=== PATIENT | female | born 1985 | race Caucasian/White ===

== ENCOUNTER 2018-08-20 10:12 | Observation (INO) | payer OTHER ==
--- NOTE | 2018-08-20 06:20 | PDGENHP ---
History and Physical History and Physical: Assessment and Plan: 1. Endometriosis of pelvic peritoneum Tere has incompletely treated endometriosis with persistent symptoms. She also has localized epigastric pain which may or may not be related to endometriosis. However her workup thus far with gastroenterology has been negative. Despite menstrual suppression she has continued symptoms. We reviewed all further conservative and surgical options. She is leaning toward surgical intervention. She will consider this further and contact us when she is ready to schedule. We discussed the issues of egg freezing. I may favor having her do this before surgery given the medications required for ovarian stimulation which has the potential risk of worsening her endometriosis. 2. Epigastric pain 3. Secondary dysmenorrhea Subjective: Patient ID: Tere De Guzman is a 32 y.o. female who presents to [facility] for endometriosis. DION Carranza is a 32-year-old 0 woman who lives in [place]. A year and a half ago she developed worsening constipation bloating and other GI issues. She changed her diet without any benefit. By September she was having intense abdominal pain. She was found to have a mass on exam. A CT scan showed a 16 cm pelvic mass. Her CA 125 and CA 199 were both significantly elevated. She was referred to gynecologic oncology for possible ovarian cancer. In October she underwent an exploratory laparotomy through a midline incision and was found to have a large right ovarian endometrioma with adhesions to the uterus, pelvic sidewall, and sigmoid colon. The omentum apparently was significantly studed with endometriosis. She underwent a infracolic omentectomy. She apparently also had a lesion on the diaphragm. The pelvic lesions were fulgurated. The first month after surgery she seemed to feel better. However her symptoms then returned. She has undergone an upper endoscopy and colonoscopy both of which were reportedly normal except for some mild gastritis. She underwent a MRI a few weeks ago which showed some possible small cystic collections in the pelvis which could be "endometriosis or retained blood from surgery". She has been on a Mirena as well as a NuvaRing in continuous fashion since November. She has been amenorrheic since then. She has no chest pain or shortness of breath. She has no dyschezia or dyspareunia. She has been undergoing pelvic floor physical therapy for some increased pelvic muscle tone however she has no symptoms. Recently she has some localized epigastric pain which has been getting worse since surgery. It is a continuous dull ache which occasionally is tender. This has become her most bothersome complaint. 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 She has no current partner. She hopes to have children in the future. She is considering egg freezing. Her primary care provider is Jonathan Corea while her reshipping clerk is Sanna Turner. PastMedicalHistory Past Medical History: Diagnosis Date Allergy to pollen Depression Endometriosis Gastrointestinal disorder PastSurgicalHistory Past Surgical History: Procedure Laterality Date OVARY REMOVAL Right 10/2017 PELVIC LAPAROSCOPY 10/2017 WISDOM TOOTH EXTRACTION CURRENT MEDICATIONS: Current Outpatient Prescriptions Medication Sig calcium carb/magnesium oxid/D3 (CALCIUM MAGNESIUM + D PO) Take by mouth daily. docusate sodium (COLACE) 100 mg capsule Take 100 mg by mouth for constipation. etonogestrel-eth estradiol (NUVARING) 0.12-0.015 mg/24 hr vaginal ring chapincito root (CHAPINCITO EXTRACT PO) ibuprofen (ADVIL,MOTRIN) 400 mg tablet Take 400 mg by mouth. levonorgestrel (MIRENA) 20 mcg/24 hr (5 years) IUD loratadine (CLARITIN,ALAVERT) 10 mg tablet sertraline (ZOLOFT) 50 mg tablet Zoloft 50 mg tablet Take 1 tablet every day by oral route. TURMERIC ROOT EXTRACT PO No current facility-administered medications for this visit. ALLERGIES: Lactose I have reviewed, verified and agree with the past medical, surgical, , family, social and ROS history as documented by the RN today. Objective: Vital Signs: Visit Vitals BP 118/74 Pulse 72 Temp 37.2 C (99 F) (Temporal Artery) Resp 16 Ht 1.695 m (5' 6.75") Wt 68.4 kg (150 lb 12.8 oz) SpO2 97% BMI 23.80 kg/m Physical Exam Gen: This is an alert, well developed woman in no distress. Neuro: She moves all extremities. Psych: She is appropriate, oriented, with normal affect. Neck: No thyroid enlargement, adenopathy, or tenderness. Lungs: Clear to ascultation, no wheezes or rales. Heart: Regular rate and rhythm without obvious murmurs. Abdomen: Soft, non-tender, without guarding, rebound, or masses. Extremities: No edema or cyanosis. Pelvic: Normal external genitalia. Non-gaping introitus, vagina without discharge, adequately estrogenized, no significant prolapse. Cervix without lesions or discharge. Uterus normal sized, some reduced mobility. Adnexa mildly- tender without enlargement. She is tender surrounding the cervix more so in the posterior cul-de-sac. There is a more tender nodule at the insertion of the left uterosacral ligament into the cervix. DATA: I have reviewed the pertinent medical records. PELVIC ULTRASOUND Indication: Endometriosis Findings: Uterus is anterior and measures 7.9 x 3.9 x 5.2 cm. A Mirena IUD is seen at the fundus with the arms in a horizontal position. The right adnexa is surgically absent. The left ovary measures 4.4 x 2.0 cm. There is no evidence of significant adhesive disease. Impression: Absent right adnexa. Otherwise unremarkable pelvic ultrasound. TIME/COMMUNICATION: I personally spent a total of 60 minutes. Of that 40 minutes was counseling/ coordination of patient's care. See my note above for details. Codey De Guzman MD Board Certified Female Pelvic Medicine and Reconstructive Surgery Director of Minimally Invasive Gynecologic Surgery, [facility] Surgeon in Minimally Invasive Gynecologic Surgery [facility] Surgeon in Robotic Surgery
[2018-08-20] MEDS ORDERED: PHENAZOPYRIDINE HCL 200 MG TAB PO ONE (10:25)
[2018-08-20] MEDS ORDERED: GABAPENTIN 300 MG CAP PO ONE (10:25)
[2018-08-20] MEDS ORDERED: ceFAZolin 2 GM/DEXTROSE 100 ML IV ONE (10:25)
[2018-08-20] MEDS ORDERED: ACETAMINOPHEN 500 MG TAB PO ONE (10:25)
[2018-08-20] MEDS ORDERED: LR 1,000 ML IV ONE (10:52)
--- NOTE | 2018-08-20 11:08 | PDANEPAE ---
ANE History of Present Illness 33 y/o female here for robot-assisted excision of endometriosis ANE Past Medical History - Cardiovascular History Hx Hypertension: No Hx Arrhythmias: No Hx Chest Pain: No Hx Coronary Artery / Peripheral Vascular Disease: No Hx CHF / Valvular Disease: No Hx Palpitations: No - Pulmonary History Hx COPD: No Hx Asthma/Reactive Airway Disease: No Hx Recent Upper Respiratory Infection: No Hx Oxygen in Use at Home: No Hx Sleep Apnea: No Sleep Apnea Screening Result - Last Documented: Negative - Neurologic History Hx Cerebrovascular Accident: No Hx Seizures: No Hx Dementia: No - Endocrine History Hx Diabetes: No - Renal History Hx Renal Disorders: No - Liver History Hx Hepatic Disorders: No - Neurological & Psychiatric Hx Hx Neurological and Psychiatric Disorders: Yes Neurological / Psychiatric History Comment: mild depression - Cancer History Hx Cancer: No - Congenital Disorder History Hx Congenital Disorders: No - GI History Hx Gastrointestinal Disorders: Yes Gastrointestinal History Comment: 'a lot of digestive issues that go with endometriosis". had gastritis after last surgery. fluctuates between diarrhea and constipation - Other Health History Other Health History: endometriosis - Chronic Pain History Chronic Pain: Yes (r/t endometriosis pain) - Surgical History Prior Surgeries: laparotomy for ovarian cyst removal, removal of right ovary, partial omentectomy, 10/2017 ANE Review of Systems Review of Systems: - Exercise capacity Exercise capacity: >=4 METS METS (RN): 6 METS ANE Patient History - Allergies Allergies/Adverse Reactions: No Known Allergies Allergy (Unverified 08/12/18 16:05) - Home Medications Home medications: home medication list seen and reviewed Home Medications: Calcium Magnesium Caplet 08/12/18 [Last Taken 08/12/18] Colace PRN 08/12/18 [Last Taken 08/18/18] Ibuprofen PRN 08/12/18 [Last Taken 08/12/18] Sertraline HCl 08/12/18 [Last Taken 08/20/18 07:00] - NPO status NPO Since - Liquids (Date): 08/20/18 NPO Since - Liquids (Time): 09:00 NPO Since - Solids (Date): 08/19/18 NPO Since - Solids (Time): 20:00 - Anes Hx Anes Hx: no prior problems - Smoking Hx Smoking Status: Never smoked - Family Anes Hx Family Hx Anesthesia Complications: none ANE Labs/Vital Signs - Vital Signs Blood Pressure: 113/70 Heart Rate: 63 Respiratory Rate: 15 O2 Sat (%): 97 Height: 170.18 cm Weight: 66.678 kg ANE Physical Exam - Airway Neck exam: FROM Mallampati Score: Class 1 Mouth exam: normal dental/mouth exam - Pulmonary Pulmonary: no rales or rhonchi, clear to auscultation - Cardiovascular Cardiovascular: regular rate and rhythym - ASA Status ASA Status: II
--- NOTE | 2018-08-20 11:38 | PDHPUP ---
History & Physical Update H&P update statement: This history and physical update is based on an assessment of the patient which was completed after admission or registration (within 24 hours), but prior to the surgery/procedure. H&P update: H&P reviewed & patient examined, no change in patient's condition since H&P completed
[2018-08-20] MEDS ORDERED: BUPIVACAINE/EPI 0.5% 30 ML SDV ONE (11:55)
[2018-08-20] MEDS ORDERED: MIDAZOLAM 2 MG/2 ML VIAL IVP ONE (12:00)
[2018-08-20] MEDS ORDERED: SCOPOLAMINE HYDROBROMIDE 1 MG/3 DAYS PATCH TD ONE (12:00)
[2018-08-20] MEDS ORDERED: PROPOFOL/EMULSION 500 MG/50 ML BOTTLE IV ONE (12:04)
[2018-08-20] MEDS ORDERED: fentaNYL 100 MCG/2 ML INJ ONE (12:04)
[2018-08-20] MEDS ORDERED: LIDOCAINE 2% 2 ML INJ ONE ×2 (12:05)
[2018-08-20] MEDS ORDERED: ROCURONIUM 50 MG/5 ML VIAL ONE ×2 (12:05→13:13)
[2018-08-20] MEDS ORDERED: PETROLAT,WHT/MIN OIL/SOD CHL 3.5 GM OPHT.OINT ONE (12:32)
[2018-08-20] MEDS ORDERED: DEXAMETHASONE 4 MG/ML VIAL ONE (12:43)
[2018-08-20] MEDS ORDERED: METOCLOPRAMIDE 10 MG/2 ML VIAL ONE (12:44)
[2018-08-20] MEDS ORDERED: ePHEDrine SULFATE 25 MG/5 ML SYR ONE (12:56)
[2018-08-20] MEDS ORDERED: MEPERIDINE 25 MG/0.5 ML AMP IVP PRN (13:44)
[2018-08-20] MEDS ORDERED: PROMETHAZINE HCL 25 MG/ML INJ IVP PRN ×2 (13:44→14:56)
[2018-08-20] MEDS ORDERED: NALOXONE HCL 0.4 MG/ML INJ IVP PRN (13:44)
[2018-08-20] MEDS ORDERED: ONDANSETRON 4 MG/2 ML VIAL IVP PRN ×2 (13:44→14:56)
[2018-08-20] MEDS ORDERED: oxyCODONE IR 5 MG TAB PO PRN (13:44)
[2018-08-20] MEDS ORDERED: LR 500 ML IV PRN (13:44)
[2018-08-20] MEDS ORDERED: fentaNYL 100 MCG/2 ML INJ IVP PRN (13:44)
[2018-08-20] MEDS ORDERED: ACETAMINOPHEN 500 MG TAB PO PRN (13:44)
[2018-08-20] MEDS ORDERED: ONDANSETRON 4 MG/2 ML VIAL ONE ×3 (14:16→15:51)
[2018-08-20] MEDS ORDERED: KETOROLAC 30 MG/1 ML SDV ONE (14:16)
[2018-08-20] MEDS ORDERED: GLYCOPYRROLATE 0.2 MG/1 ML VIAL ONE ×2 (14:29→14:40)
[2018-08-20] MEDS ORDERED: NEOSTIGMINE METHYLSULFATE 5 MG/5 ML SYR ONE (14:33)
[2018-08-20] MEDS ORDERED: ONDANSETRON DISINTEGRATING 4 MG TAB PO PRN (14:56)
[2018-08-20] MEDS ORDERED: HYDROCODONE/APAP 5/325 TAB PO PRN (14:56)
[2018-08-20] MEDS ORDERED: HYDROmorphONE/DILAUDID 1 MG/ML INJ IVP PRN (14:56)
--- NOTE | 2018-08-20 14:56 | POSTOPPROG ---
Post Op Note Date of Operation: 08/20/18 Surgeon: Codey De Guzman Field Administrator: Adriana Castillo Anesthesiologist: Galilea Anesthesia: GET(General Endotracheal) Pre-op Diagnosis: Endometriosis, pelvic pain Post-op Diagnosis: Same Procedure: Excise endo diaphragm, pelvis, rectum; bilat ureterolysis Findings: Endo Inf/Abcess present in the surg proc area at time of surgery?: No EBL: Minimal Complications: None
[2018-08-20] MEDS ORDERED: LR 1,000 ML IV SCH (15:00)
[2018-08-20] MEDS ORDERED: HYDROmorphONE/DILAUDID 2 MG/ML INJ IVP PRN (15:05)
--- NOTE | 2018-08-20 15:05 | POSTANESTH ---
Post Anesthetic Evaluation Respiratory Status: Normal, Stable Level of Consciousness/Mental Status: Alert and Oriented, Mildly Sleepy, Arousable Pain Control: Adequate, Prn Tx Ordered Nausea/Vomiting Control: Adequate, Prn Tx Ordered
[2018-08-20] MEDS ORDERED: HYDROmorphONE/DILAUDID 2 MG/ML INJ ONE (15:29)
[2018-08-20] MEDS: GABAPENTIN 300 MG CAP PO SCH ×2 (17:41→19:36)
[2018-08-20] MEDS: SIMETHICONE 80 MG TAB CHEW PO SCH (19:34)
[2018-08-20] MEDS: OXYCODONE/APAP 5/325 TAB PO PRN (19:48)
[2018-08-20] MEDS: DOCUSATE SODIUM 100 MG CAP PO SCH (19:55)
[2018-08-20] MEDS: KETOROLAC 30 MG/1 ML SDV IVP SCH (22:26)
[2018-08-21] MEDS: ceFAZolin 2 GM/DEXTROSE 100 ML IV SCH ×2 (00:05→08:05)
[2018-08-21] MEDS: OXYCODONE/APAP 5/325 TAB PO PRN ×3 (00:54→09:18)
[2018-08-21] MEDS: KETOROLAC 30 MG/1 ML SDV IVP SCH ×3 (03:53→09:28)
--- NOTE | 2018-08-21 06:07 | GOP ---
DATE OF OPERATION: 08/20/2018 SURGEON: Codey De Guzman MD COMBINE INSPECTOR: Adriana Castillo CFA. ANESTHESIA: General. PREOPERATIVE DIAGNOSIS: 1. Endometriosis. 2. Dysmenorrhea. 3. Chest pain. 4. Cyclic pelvic pain. 5. Dyschezia. POSTOPERATIVE DIAGNOSIS: 1. Endometriosis. 2. Dysmenorrhea. 3. Chest pain. 4. Cyclic pelvic pain. 5. Dyschezia. 6. Left ovarian endometrioma. PROCEDURE PERFORMED: 1. Excision of right hemidiaphragm lesions. 2. Excision of left ovarian endometrioma. 3. Left ovarian pexy. 4. Excision of extensive endometriosis throughout anterior and posterior cul-de -sac and bilateral pelvic sidewalls. 5. Bilateral ureterolysis. 6. Excision of rectal lesion. FINDINGS: SPECIMENS: 1. Pelvic peritoneum with endometriosis. 2. Rectal lesion. 3. Diaphragm lesion. 1. Left ovarian endometrioma, cyst wall. 4. ESTIMATED BLOOD LOSS: Scant. DESCRIPTION OF PROCEDURE: The patient was taken to the operating room. She was identified. General anesthesia was administered and found to be adequate. She was placed in the lithotomy position and prepared and draped in normal sterile fashion. A Hulka tenaculum was placed in the uterus for manipulation, taking care to avoid her IUD. A Jay catheter was then placed. A 1 cm infraumbilical incision was made with a scalpel. The Veress needle with CO2 gas flowing was advanced into the peritoneal cavity. The abdomen was then insufflated with carbon dioxide gas. The 12 mm trocar followed by the laparoscope were then inserted. The patient was noted to have endometriosis on the right diaphragm near the falciform ligament. Two lateral ports were placed on the right, one on the left under direct visualization. Standard laparoscopic instruments were used to excise the lesions together. She then was placed in Trendelenburg position and the da Flor robot docked on the left side. The instruments were then brought into the abdominal cavity under direct visualization. The adhesions were taken down. The ovary was scored over the endometrioma. The endometrioma was gently dissected free completely. It was then drained of its contents so that it could be removed through the 8 mm port. The entire anterior cul-de-sac peritoneum from the lower uterine segment up to the symphysis pubis, then laterally to the medial umbilical fold was completely excised. The anterior leaves of the broad ligament on the left were then completely excised as well as the peritoneum overlying the left external iliac arteries. A left ovarian pexy was then performed by attaching the left ovary to the left round ligament near the internal inguinal ring using 3-0 Vicryl Rapide suture. The lesions on the serosal surface of the uterus were then treated. The lesion on the distal rectum was then excised, extending approximately 30% to 40% into the muscularis. The entire posterior cul-de-sac peritoneum from the distal rectum up to and including the cervix and laterally to the uterosacral ligaments was then completely excised. A bilateral ureterolysis was required given the endometriosis overlying both pelvic sidewalls. The ureters were gently dissected out free of the pelvic brim. They were then lateralized off the overlying peritoneum and endometriosis which appeared to have been previously treated as it was quite scarred. This was carried all the way down to the uterine arteries. The entire ovarian fossa peritoneum with endometriosis was then completely excised. The pelvis was then copiously irrigated with sterile saline and hemostasis was present. Four sheets of Interceed were used to try to minimize postoperative adhesion formation. Two were placed in the posterior cul-de-sac and pelvic sidewalls, one over the left adnexa and one over the uterine serosa and anterior cul-de- sac. The robot was then undocked. The fascia was closed with 0 Vicryl, skin with 4-0 Monocryl and surgical adhesive. Anesthesia was reversed. The patient taken to PACU awake, in stable condition. COMPLICATIONS: None. DISPOSITION: Patient stable to PACU. /[id number]/MODL MTDD
[2018-08-21 07:45] LABS: PLATELET COUNT 250 10^3/uL (150-400)
[2018-08-21] MEDS: GABAPENTIN 300 MG CAP PO SCH (08:06)
[2018-08-21] MEDS: SIMETHICONE 80 MG TAB CHEW PO SCH ×2 (08:06→09:29)
[2018-08-21] MEDS: DOCUSATE SODIUM 100 MG CAP PO SCH (08:06)
[2018-08-21 10:53] VITALS: BP 95/63
--- NOTE | 2018-08-27 10:26 | GDS ---
DISCHARGE DIAGNOSES: 1. Endometriosis. 2. Dysmenorrhea. 3. Chest pain. 4. Cyclic pelvic pain. 5. Dyschezia. 6. Left ovarian endometrioma. PROCEDURES: 1. Excision of right hemidiaphragm lesions. 2. Excision of left ovarian endometrioma. 3. Left ovarian pexy. 4. Excision of extensive endometriosis throughout the anterior and posterior culs-de-sac, bilateral pelvic sidewalls. 5. Bilateral ureterolysis. 6. Excision of rectal lesion. HISTORY: The patient is a 33-year-old, para 0 woman with a history of incompletely treated endometri osis with continued pelvic pain. She was taken to the operating room on 08/20/2018, where she underw ent the above-mentioned procedures without complications. HOSPITAL COURSE: Her postoperative course was uneventful. The morning after surgery she was ambulat ing, voiding, and tolerating a general diet. She was discharged home with Percocet and ibuprofen for pain. She is to follow up in the office 2 weeks after discharge. /[id number]/MODL
== END 2018-08-21 11:45 | disposition home or self-care (01) ==
LOC: FSGY 10:12 → F3E 14:56 → FOB 16:23
PROVIDERS: ADMIT Obstetrics & Gynecology; ATTEND Obstetrics & Gynecology
DX: N80.3 Endometriosis of pelvic peritoneum (principal); N80.1 Endometriosis of ovary; N94.6 Dysmenorrhea, unspecified; R10.2 Pelvic and perineal pain; K59.00 Constipation, unspecified; R07.9 Chest pain, unspecified
CPT/HCPCS: 45499; 58662; 58679; 90471; C1765; G0378; G0008; J0690; J1100; J1170; J1885; J2250; J2270; J2405; J2550; J2704; J2710; J2765; J3010